=== PATIENT | male | born 1955 | race Caucasian/White ===

== ENCOUNTER 2018-06-15 08:02 | Inpatient (IN) | payer OTHER ==
[2018-06-15] MEDS ORDERED: traMADol 50 MG TAB PO PRN (14:01)
[2018-06-15] MEDS ORDERED: POLYETHYLENE GLYCOL 3350 17 GM PKT PO PRN (14:01)
[2018-06-15] MEDS ORDERED: ZINC OXIDE 56.7 GM OINTTUBE TP PRN (14:01)
[2018-06-15] MEDS ORDERED: POLYETHYLENE GLYCOL 3350 17 GM PKT TUBE PRN (15:08)
[2018-06-15] MEDS ORDERED: traMADol 50 MG TAB TUBE PRN (15:08)
--- NOTE | 2018-06-15 15:08 | PDOREHIP ---
Admission [facility] - Admission - 3 Day Assessment Period Admission Date/Day 1: 06/15/18 Day 2: 06/16/18 Day 3: 06/17/18 - Active Diagnoses Comorbidities and Co-existing Conditions at Admission: 70917. None of the Above - Skin Conditions Unhealed Pressure Ulcer (1 or more/Stage 1 or >)-Admission: 0. No # Stage 1 Pressure Ulcers-Admission: 0 # Stage 2 Pressure Ulcers-Admission: 0 # Stage 3 Pressure Ulcers-Admission: 0 # Stage 4 Pressure Ulcers-Admission: 0 # Unstageable Pressure Ulcers (Non-remove Dress)-Admission: 0 # Unstageable Pressure Ulcers (Slough/Eschar)-Admission: 0 # Unstageable Pressure Ulcers (Deep Tissue Injury)-Admission: 0
--- NOTE | 2018-06-15 16:25 | GHP ---
[f rep st] HISTORY AND PHYSICAL DATE OF ADMISSION: 06/15/2018 TIME OF EVALUATION: 1410. REFERRING FACILITY: [facility]. IMPAIRMENT GROUP: 1.1. DATE OF ONSET: 05/25/2018. REFERRING PHYSICIAN: Dr. Hale. CONSULTING PHYSICIANS: Dr. Rahat Azar of neurosurgery, Dr. Eliud Licea of otolaryngology, and Dr. Jo Carlson of neurology. 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 ETIOLOGIC DIAGNOSIS: Left body involvement (right brain). DATE OF SURGERY: 05/26/2018. HISTORY OF PRESENT ILLNESS: This patient was found by his , disoriented, confused and incontinent of stool on 05/25/2018. He was taken initially to [facility] where he was diagnosed with subarachnoid hemorrhage from a right anterior communicating artery. He was transferred to [facility]. Initially, he had attempted coiling of the aneurysm by Neurointerventional Radiology, but this was not successful. An intraventricular drain was installed. He had surgery with craniotomy and clipping of the aneurysm on 05/26/2018. He was intubated in the intensive care unit from 05/25/2018 to 05/30/2018. He was on vasospasm watch until 2018. He had acute respiratory failure with atelectasis and was also found to have Haemophilus pneumonia. He had encephalopathy and delirium for which he was prescribed quetiapine. He had hyponatremia. There was a cerebral infarction also. He had dysphagia. There was an incidental finding of a thyroid mass concerning for malignancy and this was biopsied. He was eventually medically stabilized and ready for inpatient rehabilitation. I do not have copies of the brain imaging reports. STUDIES AND LABS: The most recent laboratory studies were done today. A basic metabolic profile was overall normal. He had a low creatinine at 0.51. Glucose was slightly elevated at 117. Magnesium was normal at 2.5. CBC was normal, but for a large mean cellular volume of 102. Otherwise, there was no anemia and no leukocytosis, and a normal platelet count. Phosphorus was normal at 3.9. PRECAUTIONS: He is a fall risk. He has aspiration precautions and he has seizure precautions. ACTIVE COMORBIDITIES: He has the tier 2 comorbidity of dysphagia. He otherwise has no active tier 1, tier 2 or tier 3 comorbidities. PAST MEDICAL HISTORY: He has been overall healthy and had not seen a physician in many years. PAST SURGICAL HISTORY: He has no history of surgery. PRE-HOSPITAL MEDICATIONS: He was taking no medications. ADMISSION MEDICATIONS: 1. Enoxaparin 40 mg subcutaneous daily. 2. Polyethylene glycol 17 g p.o. daily. 3. Quetiapine 50 mg p.o. at bedtime. 4. Tramadol 50 mg p.o. q.6 hours p.r.n. pain. ALLERGIES: There are no known drug allergies. PSYCHOSOCIAL HISTORY: He is . He lives with his . 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 He is a smoker and he reports he drinks approximately 2 drinks a day. FAMILY HISTORY: Noncontributory. REVIEW OF SYSTEMS: He has fatigue after his drive from [facility] to [place]. He has confusion regarding his circumstances. He reports a headache. He denies vision changes. He is unaware of swallowing difficulties. He denies weakness, numbness or tingling of extremities. He has a cough and is using oxygen. He is not aware of feeling dyspneic. There is no chest pain or palpitations. There is no nausea, vomiting, constipation or diarrhea. He feels thirsty. He denies any urinary problems. He denies skin rash or skin breakdown. He is in good spirits. There is no joint swelling or joint pain. He has had interrupted sleep. Otherwise, a 10-point review of systems is negative. PHYSICAL EXAM: VITAL SIGNS: Blood pressure is 130/92, heart rate is 87, respiratory rate 18, oxygen saturation is 94% on 2 L of oxygen. Temperature is 36.7 degrees centigrade. His weight is 79.5 kg for a body mass index of 23.1. GENERAL: This is a well-nourished, well-developed man, somewhat unkempt with long hair, cooperative and in no acute distress. HEENT: Extraocular movements are intact. Pupils are equal, round and reactive to light. Mucous membranes are somewhat dry. Dentition is in good condition. He has an uncrowded airway, Mallampati class 2. NECK: Supple. He has thyromegaly. HEART: There is a regular rate and rhythm with no murmurs, rubs or gallops. LUNGS: Reveal left lower lobe rales. There are no rhonchi and no wheezes. He has normal respiratory excursion. ABDOMEN: Soft, nontender and nondistended with normoactive bowel sounds and no hepatosplenomegaly. EXTREMITIES: There is no cyanosis, clubbing or edema. Radial and dorsalis pedis pulses are 2+ bilaterally. NEUROLOGIC: He is alert. He has difficulty maintaining orientation and often thinks that he is in [place], [place]. However, he also has awareness of his recent hospitalization and that he is in a rehabilitation unit in [place]. Cranial nerves 2 through 12 are grossly intact. There is no focal weakness. Sensation is intact to light touch. Deep tendon reflexes are 2 + bilaterally at the biceps, patellar and Achilles tendons. There is no dysdiadochokinesis. Jfzvib-ik-pjog testing is normal bilaterally. Visual jacob are full by confrontation. SKIN: Surgical incision on his right frontal scalp is fully approximated and well healed with no sutures or negro. He has a dark, erythemic rash in his perianal area and gluteal folds extending over the left buttock with satellite lesions. There is no open skin. CURRENT LEVEL OF FUNCTION: Per the pre-admission screen. He had dysphagia and was taking oral nutrition with only nectar-thick liquids. He had Dobbhoff feedings at night. He required one-to-one supervision with meals and oral care before and after meals. All meds were delivered through the Dobbhoff tube. Regarding bed mobility, he required standby assist and cues for safety. Transfers were done with standby assist with and without a front-wheeled walker with cues for safety. He had impaired high-level balance. He was able to ambulate 200 feet with a front-wheeled walker and contact guard to standby assist with cues to manage barriers in his environment. Cognition was decreased from baseline. He was impulsive with decreased insight, attention and executive function. IMPRESSION: This is a 63-year-old man who was previously healthy, who suffered an aneurysmal bleed from the right anterior communicating artery. There was a failed attempt at coiling by Neurointerventional Radiology and he required craniotomy and clipping of the aneurysm. He had a right frontal cerebral infarction as a consequence of the procedures. He had a difficult hospital course including encephalopathy, Haemophilus influenzae pneumonia with respiratory failure, and dysphagia. He had hyponatremia which has resolved. There was incidental finding of a thyroid mass, which was biopsied. He was eventually medically stabilized and ready for inpatient rehabilitation. His goal is to complete a rehabilitation stay and then return home with his and supportive services. For a safe discharge, he will need to be able to advance to a supervision level for mobility and activities of daily living with the least restrictive assistive device. He will be advanced to the least restrictive diet and have insights into his deficits. He will need to be able to use compensatory strategies with supervision. He will need to have pain effectively managed. Ideally, he will not be using oxygen on discharge. He will have therapy with Physical Therapy, Occupational Therapy and Speech and Language Pathology for 1 hour per day for each discipline on 5 to 7 days of the week. His expected duration of stay is 10 to 12 days. It is anticipated that upon discharge, he will continue to benefit from health services including Speech and Language Pathology, Occupational Therapy and Physical Therapy. PLAN: 1. Debility, status post prolonged hospitalization for ruptured right anterior communicating artery aneurysm which required craniotomy and clipping on 2018, and valente procedural right frontal CVA. PT and OT to optimize mobility and activities of daily living. 2. Dysphagia and cognitive impairment. Current diet order is for nectar-thick liquids only and he will have feeding per Dobbhoff tube at night. He will have evaluation by Speech and Language Pathology with diet advanced as much as possible. Additionally, he will have Speech and Language Pathology regarding cognitive function and compensatory strategies. 3. Sleep-wake disturbance due to encephalopathy. Continue quetiapine at bedtime for now. Sleep-wake cycle will be observed and if possible, the quetiapine will be tapered and discontinued. 4. History of alcohol dependence with elevated MCV. It could be that alcohol withdrawal contributed to his delirium, but he is no longer in the time window for alcohol withdrawal. He will be encouraged to maintain sobriety. 5. Tobacco dependence syndrome. He did not express any desire to quit smoking. He comes to us without nicotine replacement. If he has desire to smoke, nicotine replacement will be initiated. 6. Status post respiratory failure with hypoxia. Continue oxygen as needed. He will have incentive spirometry. CBC done today in the hospital did not show an elevated white blood cell count, so it is unlikely that he has ongoing infection. If he does not have improvement as anticipated, will evaluate further. 7. Thyroid nodule which was biopsied while in the hospital. Will request biopsy results. He will follow up likely with ENT. His TSH was normal in the hospital. 8. Yeast infection left perianal, gluteal fold and left buttock. Will treat with an antifungal barrier cream. There are no decubitus ulcers. 9. Prophylaxis. He is discharged on enoxaparin, though the report regarding mobility is he has ambulated 200 feet. Will continue enoxaparin for now, but if his mobility is adequate, will discontinue the enoxaparin. 10. Followup. He is to have a repeat head CT in 3 months and follow up with Neurosurgery, Dr. Rahat Azar: the phone number to schedule the appointment is [phone]. He will follow up with tax services manager, Dr. Eliud Licea. /[id number]/MODL MTDD
[2018-06-15] MEDS ORDERED: QUEtiapine FUMARATE 25 MG TAB PO SCH (21:00)
[2018-06-15] MEDS ORDERED: QUEtiapine FUMARATE 25 MG TAB TUBE SCH (21:00)
[2018-06-16] MEDS: AQUAPHOR OINTMENT 3.5 OZ JAR TP SCH ×3 (02:30→22:27)
[2018-06-16] MEDS: ENOXAPARIN 40 MG/0.4 ML SYR SC SCH (09:58)
--- NOTE | 2018-06-16 11:16 | SOAPPROG ---
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 PT and OT to optimize mobility and activities of daily living. Dysphagia. 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 DIRECTOR SALES AND TRADE MARKETING advises nursing and hydration by mouth. Dietary will initiate calorie count.. Cognitive impairment and history of delirium in the hospital. Assessment and treatment per DIRECTOR SALES AND TRADE MARKETING. Sleep-wake disturbance due to encephalopathy. Continue quetiapine at bedtime for now. Sleep-wake cycle will be observed and if possible, the quetiapine will be tapered and discontinued. History of alcohol dependence with elevated MCV. It could be that alcohol withdrawal contributed to his delirium, but he is no longer in the time window for alcohol withdrawal. He will be encouraged to maintain sobriety. Tobacco dependence syndrome. He did not express any desire to quit smoking. He comes to us without nicotine replacement. If he has desire to smoke, nicotine replacement will be initiated. Status post respiratory failure with hypoxia. Continue oxygen as needed. He will have incentive spirometry. CBC done 06/15/2018 on the day of hospital discharge did not show an elevated white blood cell count, so it is unlikely that he has ongoing infection. If he does not have improvement as anticipated, will evaluate further. Thyroid nodule which was biopsied while in the hospital. Will request biopsy results. He will follow up likely with ENT. His TSH was normal in the hospital. Yeast infection left perianal, gluteal fold and left buttock. Will treat with an antifungal barrier cream. There are no decubitus ulcers. Prophylaxis. He is discharged on enoxaparin, though the report regarding mobility is he has ambulated 200 feet. Will continue enoxaparin for now, but if his mobility is adequate, will discontinue the enoxaparin. FOLLOW-UP. He is to have a repeat head CT in 3 months and follow up with Neurosurgery, Dr. Rahat Azar: the phone number to schedule the appointment is [phone]. He will follow up with sales support specialist, Dr. Eliud Licea. 06/16/18 11:11 Subjective: Has a headache, approximately 3/10 in intensity, over bilateral frontal area. Otherwise without neurologic complaints and not in pain. No cough or dyspnea. NG tube was dislodged when he blew his nose overnight and has since been removed. He says he was able to eat and drink with speech therapy this morning. Slept well. Objective: Vital Signs Temp Pulse Resp BP Pulse Ox 36.8 C 72 16 117/66 92 06/16/18 06:41 06/16/18 06:41 06/16/18 06:41 06/16/18 06:41 06/16/18 06:41 06/15/18 06/16/18 06/17/18 05:59 05:59 05:59 Intake Total 590 472 Balance 590 472 Physical Exam - Physical Exam General Appearance: WD/WN, alert, no apparent distress Respiratory: normal breath sounds, No crackles, No rhonchi, No wheezing Cardiac/Chest: regular rate, rhythm, No edema, No diastolic murmur, No systolic murmur Skin: normal color, warm/dry Neuro/Psych: alert, normal mood/affect ICD10 Worksheet Patient Problems: Problems Problem Status Onset Ruptured cerebral aneurysm Acute S/P craniotomy Acute
[2018-06-16] MEDS ORDERED: POLYETHYLENE GLYCOL 3350 17 GM PKT PO PRN (17:34)
[2018-06-16] MEDS ORDERED: traMADol 50 MG TAB PO PRN (17:34)
[2018-06-16] MEDS: QUEtiapine FUMARATE 25 MG TAB PO SCH (22:23)
[2018-06-17] MEDS: AQUAPHOR OINTMENT 3.5 OZ JAR TP SCH ×2 (08:29→22:16)
[2018-06-17] MEDS: ENOXAPARIN 40 MG/0.4 ML SYR SC SCH (08:29)
--- NOTE | 2018-06-17 13:19 | SOAPPROG ---
SOAP Progress Note Assessment/Plan: Assessment: 63 YO Gentleman with R [place] Aneurysm, SAH * Debility, status post prolonged hospitalization for ruptured right anterior communicating artery aneurysm which required craniotomy and clipping on 2018, and valente procedural right frontal CVA. PT and OT to optimize mobility and activities of daily living. * Dysphagia. NG tube D/C'ed 06/16/2018. CLINICAL DIETITIAN advises nursing and hydration by mouth. Dietary to cont calorie count.. * Cognitive impairment and history of delirium in the hospital. Assessment and treatment per CLINICAL DIETITIAN. Sleep-wake disturbance due to encephalopathy. Continue quetiapine at bedtime for now. Sleep-wake cycle will be observed and if possible, the quetiapine will be tapered and discontinued. * History of alcohol dependence with elevated MCV. Possible withdrawal contributed to his acute delirium, but expect that issue resolved (timing) and this is his new baseline. * Tobacco dependence syndrome. He did not express any desire to quit smoking. He comes to us without nicotine replacement. If he has desire to smoke, nicotine replacement will be initiated. This could contribute to anxiety and behavioral problems. * Status post respiratory failure with hypoxia. Continue incentive spirometry regularly, oxygen as needed. CBC done 06/15/2018 not c/w elevated white blood cell count. Re-evaluate further PRN. * Thyroid nodule, biopsy results pending. Follow up likely with ENT. His TSH was normal in the hospital. * Yeast infection left perianal, gluteal fold and left buttock. Will treat with an antifungal barrier cream. There are no decubitus ulcers. * Prophylaxis. Currently on enoxaparin, but if his mobility is adequate, will discontinue the enoxaparin. FOLLOW-UP. He is to have a repeat head CT in 3 months and follow up with Neurosurgery, Dr. Rahat Azar: the phone number to schedule the appointment is [phone]. He will follow up with network mgr, Dr. Eliud Licea. Plan: Cont Dr Camejo rehab treatment plan. 06/17/18 13:11 Subjective: No new problems or C/O's. Slept poor. Reports RAPP at 4/10, improved with tylenol. No F/C/CP/SOB/N/V/D/C Objective: Vital Signs Temp Pulse Resp BP Pulse Ox 36.6 C 82 14 134/104 H 87 L 06/17/18 05:45 06/17/18 05:45 06/17/18 05:45 06/17/18 05:45 06/17/18 05:45 06/16/18 06/17/18 06/18/18 05:59 05:59 05:59 Intake Total 472 1320 Balance 472 1320 Physical Exam - Physical Exam General Appearance: alert Respiratory: lungs clear Cardiac/Chest: regular rate, rhythm Abdomen: normal bowel sounds, soft Skin: normal color, warm/dry Extremities: No pedal edema, No calf tenderness Neuro/Psych: alert, abnormal gait, motor weakness, cognition abnormalities, disoriented to time, depressed affect, other (sedate compared to yesterday per ST observation), No oriented x 3 ICD10 Worksheet Patient Problems: Problems Problem Status Onset Ruptured cerebral aneurysm Acute S/P craniotomy Acute
[2018-06-17] MEDS ORDERED: ACETAMINOPHEN 325 MG TAB PO PRN (13:20)
[2018-06-17] MEDS: ACETAMINOPHEN 650 MG/20.3 ML UDCUP PO PRN (13:50)
[2018-06-17] MEDS: QUEtiapine FUMARATE 25 MG TAB PO SCH (22:10)
[2018-06-18] MEDS: ENOXAPARIN 40 MG/0.4 ML SYR SC SCH (08:18)
[2018-06-18] MEDS: ACETAMINOPHEN 650 MG/20.3 ML UDCUP PO PRN (08:19)
[2018-06-18] MEDS: AQUAPHOR OINTMENT 3.5 OZ JAR TP SCH ×2 (08:19→20:50)
--- NOTE | 2018-06-18 13:11 | SOAPPROG ---
SOAP Progress Note Assessment/Plan: Assessment: 63 YO Gentleman with R [place] Aneurysm, SAH * Debility, status post prolonged hospitalization for ruptured right anterior communicating artery aneurysm which required craniotomy and clipping on 2018, and valente procedural right frontal CVA. PT and OT to optimize mobility and activities of daily living. * Dysphagia. NG tube D/C'ed 06/16/2018. HUMAN SERVICES PROGRAM SPECIALIST advises nursing and hydration by mouth. Dietary to cont calorie count.. * Cognitive impairment and history of delirium in the hospital. Assessment and treatment per HUMAN SERVICES PROGRAM SPECIALIST. Sleep-wake disturbance due to encephalopathy. Continue quetiapine at bedtime for now. Sleep-wake cycle will be observed and if possible, the quetiapine will be tapered and discontinued. * History of alcohol dependence with elevated MCV. Possible withdrawal contributed to his acute delirium, but expect that issue resolved (timing) and this is his new baseline. * Tobacco dependence syndrome. He did not express any desire to quit smoking. He comes to us without nicotine replacement. If he has desire to smoke, nicotine replacement will be initiated. This could contribute to anxiety and behavioral problems. * Status/post respiratory failure with hypoxia. Continue incentive spirometry regularly, oxygen as needed. * Thyroid nodule, biopsy results pending. Follow up likely with ENT. His TSH was normal in the hospital. * Yeast infection left perianal, gluteal fold and left buttock. Will treat with an antifungal barrier cream. There are no decubitus ulcers. * Prophylaxis. Currently on enoxaparin, but if his mobility is adequate, will discontinue the enoxaparin. FOLLOW-UP. He is to have a repeat head CT in 3 months and follow up with Neurosurgery, Dr. Rahat Azar, follow up with Emergency Veterinary Technician, Dr. Eliud Licea. Plan: Cont Dr Street's rehab treatment plan. 06/18/18 13:08 Subjective: No new problems or C/O's No F/C/CP/SOB/N/V/D/C Objective: Vital Signs Temp Pulse Resp BP Pulse Ox 36.6 C 78 18 127/74 H 92 06/17/18 19:56 06/17/18 19:56 06/17/18 19:56 06/17/18 19:56 06/17/18 23:09 06/17/18 06/18/18 06/19/18 05:59 05:59 05:59 Intake Total 1320 2570 Balance 1320 2570 Physical Exam - Physical Exam General Appearance: alert, no apparent distress Respiratory: lungs clear Cardiac/Chest: regular rate, rhythm Skin: normal color, warm/dry Extremities: No pedal edema, No calf tenderness Neuro/Psych: alert, normal mood/affect, abnormal gait, motor weakness, other ( No acute changes), No oriented x 3 ICD10 Worksheet Patient Problems: Problems Problem Status Onset Ruptured cerebral aneurysm Acute S/P craniotomy Acute
[2018-06-18] MEDS: QUEtiapine FUMARATE 25 MG TAB PO SCH (20:50)
[2018-06-19] MEDS: ENOXAPARIN 40 MG/0.4 ML SYR SC SCH (09:23)
[2018-06-19] MEDS: ACETAMINOPHEN 650 MG/20.3 ML UDCUP PO PRN (10:58)
[2018-06-19] MEDS: AQUAPHOR OINTMENT 3.5 OZ JAR TP SCH ×2 (10:59→19:32)
--- NOTE | 2018-06-19 12:44 | SOAPPROG ---
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 * Initial functional independence measure is 84 on 06/19/2018. Supervision level for ambulation. Climbed and descended 18 stairs with 1 rail and supervision. Supervision level for ADLs. However safety is significantly impacted by severe short-term memory loss and confusion. He flooded the bathroom seeking a shower head with there was none. He is requiring 24 hr supervision. * PT and OT to optimize mobility and activities of daily living. Dysphagia. * NG tube was dislodged gauge maker 06/16/2018 and has been removed. * He continues on full liquid diet, nectar thick consistency. Tolerated cream of wheat and SECURITIES ADVISER is considering advancing to pureed solids. Cognitive impairment and history of delirium in the hospital. * SECURITIES ADVISER notes pervasive confusion including visuospatial and temporal. Requiring 1-1 supervision 24 hr per day. May have increased confusion noted by staff on . * Query Wernicke/Korsakoff syndrome. Has had elevated MCV, possibly due to alcohol use. Outside chart reviewed; given his other acute neurologic deficits , there appears to have been no assessment or treatment for alcohol withdrawal or Wernicke encephalopathy. * Labs 06/19/2018 with normal CBC including MCV, mild elevation of ALT and slightly low albumin but otherwise normal CMP, and normal B12. * Trial of IV I am in 500 mg tonight, 06/19/2018. History of alcohol dependence with elevated MCV. * No longer in the time window for alcohol withdrawal. He will be encouraged to maintain sobriety. Tobacco dependence syndrome. He did not express any desire to quit smoking. He comes to us without nicotine replacement. If he has desire to smoke, nicotine replacement will be initiated. Status post respiratory failure with hypoxia. Continue oxygen as needed. He will have incentive spirometry. CBC done 06/15/2018 on the day of hospital discharge did not show an elevated white blood cell count, so it is unlikely that he has ongoing infection. If he does not have improvement as anticipated, will evaluate further. Thyroid nodule which was biopsied while in the hospital. Have requested biopsy results. He will follow up likely with ENT. His TSH was normal in the hospital. Yeast infection left perianal, gluteal fold and left buttock. Will treat with an antifungal barrier cream. There are no decubitus ulcers. Prophylaxis. He is discharged on enoxaparin, though the report regarding mobility is he has ambulated 200 feet. Much improved mobility as of 06/19/2018. Discontinuing enoxaparin starting 06/20/2018. DISPOSITION: Lives with . She works 93 every day. There are other family members who may be available to provide assistance. Tentative discharge date is 06/21/2018, but requesting extension due to need for supervision and dysphagia. FOLLOW-UP. He is to have a repeat head CT in 3 months and follow up with Neurosurgery, Dr. Rahat Azar: the phone number to schedule the appointment is [phone]. He will follow up with director statistical programming, Dr. Eliud Licea. 06/19/18 12:37 06/19/18 15:50 Subjective: No complaints. Not in pain. He reports sleep is interrupted and he feels tired in the morning when he wakes up. No cough or dyspnea, no fevers or chills , no urinary frequency or dysuria. Objective: Vital Signs Temp Pulse Resp BP Pulse Ox 36.9 C 80 16 105/72 90 L 06/19/18 08:00 06/19/18 08:00 06/19/18 08:00 06/19/18 08:00 06/19/18 08:00 06/18/18 06/19/18 06/20/18 05:59 05:59 05:59 Intake Total 2570 1348 460 Balance 2570 1348 460 - Time Spent With Patient Time Spent With Patient: Greater than 35 min floor time today, including more than 50% of time in coordination of care during staffing, and counseling patient. Physical Exam - Physical Exam General Appearance: WD/WN, alert, no apparent distress Respiratory: normal breath sounds, No crackles, No rhonchi, No wheezing Cardiac/Chest: regular rate, rhythm, No edema, No diastolic murmur, No systolic murmur Skin: normal color, warm/dry Neuro/Psych: alert, normal mood/affect, other (No pronator drift), No abnormal cerebellar tests (Normal finger to nose), No abnormal gait, No EOM palsy ICD10 Worksheet Patient Problems: Problems Problem Status Onset Ruptured cerebral aneurysm Acute S/P craniotomy Acute
[2018-06-19 14:22] LABS: PLATELET COUNT 161 10^3/uL (150-400)
[2018-06-19] MEDS ORDERED: THIAMINE HCL 500 MG in NS 100 ML IV ONE (15:46)
[2018-06-19] MEDS: QUEtiapine FUMARATE 25 MG TAB PO SCH (19:32)
[2018-06-20] MEDS: AQUAPHOR OINTMENT 3.5 OZ JAR TP SCH ×2 (10:05→21:21)
[2018-06-20] MEDS: QUEtiapine FUMARATE 25 MG TAB PO SCH (21:19)
[2018-06-21] MEDS: AQUAPHOR OINTMENT 3.5 OZ JAR TP SCH ×2 (10:44→21:19)
--- NOTE | 2018-06-21 12:05 | SOAPPROG ---
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 * Initial functional independence measure is 84 on 06/19/2018. Supervision level for ambulation. Climbed and descended 18 stairs with 1 rail and supervision. Supervision level for ADLs. However safety is significantly impacted by severe short-term memory loss and confusion. He flooded the bathroom seeking a shower head where there was none. He needs considerable cuing. He is requiring 24 hr supervision. * PT and OT to optimize mobility and activities of daily living. Dysphagia. * NG tube was dislodged work manager 06/16/2018 and has been removed. * Advanced from full liquid diet, nectar thick consistency, to dysphagia 1 and nectar thick liquid on 06/20/2018. * Continue POPCORN ATTENDANT. Cognitive impairment and history of delirium in the hospital. * POPCORN ATTENDANT notes pervasive confusion including visuospatial and temporal. Requiring 1-1 supervision 24 hr per day. May have increased confusion noted by staff on . * Query Wernicke/Korsakoff syndrome. Has had elevated MCV, possibly due to alcohol use. Outside chart reviewed; given his other acute neurologic deficits , there appears to have been no assessment or treatment for alcohol withdrawal or Wernicke encephalopathy. * Labs 06/19/2018 with normal CBC including MCV, mild elevation of ALT and slightly low albumin but otherwise normal CMP, and normal B12. * Had trial of IV thiamin 500 mg 06/19/2018. * MRI shows hydrocephalus, as well as sequelae of right frontal craniotomy with hemorrhage and possible ischemia. I have asked Radiology to transmit images to [facility] for neurosurgeon Dr. Wyatt to review. Papillary thyroid cancer with positive cervical lymph node. Pathology report reviewed 06/21/2018. Most likely will have thyroidectomy and then radioactive thyroid ablation. Will follow up with ENT Dr. Licea after discharge. Insomnia. Query whether poor sleep is impairing attention and initiative. Quetiapine 50 mg at bedtime has been ineffective. * Discontinue quetiapine and start trazodone, 06/21/2018. History of alcohol dependence with elevated MCV. * No longer in the time window for alcohol withdrawal. He will be encouraged to maintain sobriety. Tobacco dependence syndrome. He did not express any desire to quit smoking. He comes to us without nicotine replacement. If he has desire to smoke, nicotine replacement will be initiated. Status post respiratory failure with hypoxia. Continue oxygen as needed. He will have incentive spirometry. CBC done 06/15/2018 on the day of hospital discharge did not show an elevated white blood cell count, so it is unlikely that he has ongoing infection. If he does not have improvement as anticipated, will evaluate further. Thyroid nodule which was biopsied while in the hospital. Have requested biopsy results. He will follow up likely with ENT. His TSH was normal in the hospital. Yeast infection left perianal, gluteal fold and left buttock. Will treat with an antifungal barrier cream. There are no decubitus ulcers. Prophylaxis. He is discharged on enoxaparin, though the report regarding mobility is he has ambulated 200 feet. Much improved mobility as of 06/19/2018. Discontinuing enoxaparin starting 06/20/2018. DISPOSITION: Lives with . She works 9 to 3 every day. There are other family members who may be available to provide assistance. Tentative discharge date is 06/22/2018, but requesting extension due to need for supervision and dysphagia. FOLLOW-UP. He is to have a repeat head CT in 3 months and follow up with Neurosurgery, Dr. Rahat Azar: the phone number to schedule the appointment is [phone]. He will follow up with restrike hammer operator, Dr. Eliud Licea. 06/22/18 12:52 Subjective: Continues to complain of poor sleep and feels tired today. Says he has difficulty attaining sleep. Otherwise without complaints. Not in pain. No cough or dyspnea. No fevers or chills. Objective: Vital Signs Temp Pulse Resp BP Pulse Ox 36.7 C 68 18 127/67 H 92 06/21/18 08:00 06/21/18 08:00 06/21/18 08:00 06/21/18 08:00 06/21/18 08:00 Laboratory Results 06/19/18 13:23 06/19/18 13:23 06/20/18 06/21/18 06/22/18 05:59 05:59 05:59 Intake Total 2250 1140 Balance 2250 1140 Physical Exam - Physical Exam General Appearance: WD/WN, alert, no apparent distress Respiratory: normal breath sounds, No crackles, No rhonchi, No wheezing Cardiac/Chest: regular rate, rhythm, No edema, No diastolic murmur, No systolic murmur Skin: normal color, warm/dry Neuro/Psych: alert, normal mood/affect, other (Reduced initiative and needs considerable cuing to arise from seated for exam) ICD10 Worksheet Patient Problems: Problems Problem Status Onset Ruptured cerebral aneurysm Acute S/P craniotomy Acute
[2018-06-21] MEDS ORDERED: traZODone 50 MG TAB PO SCH (21:00)
[2018-06-22 13:55] VITALS: BP 114/68
[2018-06-22] MEDS: AQUAPHOR OINTMENT 3.5 OZ JAR TP SCH (16:03)
--- NOTE | 2018-06-22 19:43 | GDS ---
[f rep st] DISCHARGE SUMMARY ADMITTING DIAGNOSES: Debility, status post craniotomy and clipping of ruptured anterior communicating artery aneurysm. DISCHARGE DIAGNOSES: Debility, status post craniotomy and clipping of ruptured anterior communicating artery aneurysm. OTHER DISCHARGE DIAGNOSES: 1. Dysphagia. 2. Cognitive impairment. 3. Papillary thyroid cancer. COMPLICATIONS: There was worsening cognitive impairment. PROCEDURES: He had a brain MRI and a video fluoroscopic swallow study. CONSULTATIONS: None. HISTORY/HOSPITAL COURSE: The patient came to inpatient rehabilitation from [facility]. He was initially evaluated at [facility] where he was found to have a subarachnoid hemorrhage. He was transferred to [facility] where initially attempt was made to treat the aneurysm bleed with endovascular coiling; however, this was not successful. He required craniotomy and clipping of the artery. He had extensive blood in the right frontal area and possibly some cortical ischemia as well. He was medically stabilized but had dysphagia and came to inpatient rehabilitation with an NG tube and orders for liquids only for nutrition. He had a mixed course in inpatient rehabilitation. His feeding tube was accidentally dislodged, but he was able to be advanced to pureed textured food and continued on nectar-thick liquids. He had improvement in mobility. He was at supervision level for ambulation. He climbed and descended 18 stairs with 1 rail with supervision and he was at supervision for activities of daily living. However, safety was significantly impacted by severe short-term memory loss and confusion. He was requiring 24 hours supervision. He scored 19 on the orientation log test which is well below normal. He scored 10/18 on frontal assessment battery, which is 7 standard deviations below normal. His cognition worsened during his stay. He had a laboratory evaluation on 06/19, with a CBC and a comprehensive metabolic profile which ruled out infectious or metabolic causes. Vitamin B12 was normal. He had a brain MRI done on 06/21/2017 which showed hydrocephalus as well as sequelae of right frontal craniotomy with hemorrhage and possible ischemia. MRI findings were discussed with the nurse practitioner for neurosurgeon, Dr. Rahat Azar, who had performed the craniotomy and aneurysm in clipping at [facility]. Dr. Azar felt that he might benefit from placement of a peritoneal shunt, so arrangements were made for direct admission to [facility] for evaluation for shunt placement by the Neurosurgery Service. During his hospitalization, there was an incidental finding of a thyroid mass. This was biopsied and the biopsy result was papillary cell carcinoma. There was also a cervical lymph node which were positive. His TSH in the hospital had been normal. DISCHARGE PLAN: Condition is fair with good mobility, but severe cognitive impairment. DISPOSITION: [facility] for consideration of placement of ventricular peritoneal shunt. DIET: Regular with pureed food and nectar thick liquids. ACTIVITY: Ad zach but he needs supervision for safety with mobility and activities of daily living. ALLERGIES: There are no known drug allergies. MEDICATIONS UPON DISCHARGE: 1. Acetaminophen 650 mg p.o. q.4 hours p.r.n. 2. Trazodone 50 mg p.o. at bedtime. 3. Polyethylene glycol 17 g p.o. daily p.r.n. Greater than 30 min were spent on this discharge including medication reconciliation, multiple phone calls for coordination of care and arrangement of transfer to [facility], and counseling of patient and his . Copy requested to: Harsh Bourgeois M.D. Rahat Azar M.D. Neurosurgery Eliud Licea M.D. /[id number]/MODL MTDD
== END 2018-06-22 17:10 | disposition short-term general hospital (02) | DRG 57 ==
LOC: BREH 12:55
PROVIDERS: ADMIT Internal Medicine Hospice and Palliative Medicine; ATTEND Internal Medicine Hospice and Palliative Medicine
DX: I69.054 Hemiplegia and hemiparesis following nontraumatic subarachnoid hemorrhage affecting left non-dominant side (principal); Z48.811 Encounter for surgical aftercare following surgery on the nervous system; I69.091 Dysphagia following nontraumatic subarachnoid hemorrhage; I69.010 Attention and concentration deficit following nontraumatic subarachnoid hemorrhage; I69.018 Other symptoms and signs involving cognitive functions following nontraumatic subarachnoid hemorrhage; C73 Malignant neoplasm of thyroid gland; C77.0 Secondary and unspecified malignant neoplasm of lymph nodes of head, face and neck; G91.9 Hydrocephalus, unspecified; R09.02 Hypoxemia; B37.2 Candidiasis of skin and nail; F17.210 Nicotine dependence, cigarettes, uncomplicated; F10.21 Alcohol dependence, in remission; Z99.81 Dependence on supplemental oxygen
CPT/HCPCS: 82607-90; 92507-GN; 92523-GN; 92526-GN; 92610-GN; 92611-GN; 97110-GP; 97112-GP; 97116-GP; 97161-GP; 97166-GO; 97530-GO; 97530-GP; 97535-GO; J1650; J3411